=== PATIENT | male | born 2005 | race Two or more races ===

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

== ENCOUNTER → 2025-03-15 | Outpatient (CLI) | payer OTHER | LOC: M CLY 07:34 | PROVIDERS: ATTEND Family Medicine | DX: M54.16 Radiculopathy, lumbar region (principal) ==

== ENCOUNTER → 2025-04-18 | Outpatient (CLI) | payer OTHER | LOC: M RAD 06:44 | PROVIDERS: ATTEND Family Medicine | DX: M47.26 Other spondylosis with radiculopathy, lumbar region (principal); R20.0 Anesthesia of skin; R29.898 Other symptoms and signs involving the musculoskeletal system; M51.46 Schmorl's nodes, lumbar region ==